=== PATIENT | male | born 1995 | race Caucasian/White ===

== ENCOUNTER 2025-03-05 08:26 | Outpatient (AMB) | payer OTHER, SELFPAY ==
--- NOTE | 2025-03-05 08:28 | MHC.PC.OV ---
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 Note: patient here for new patient Regional Recruiter Required: No Allergies No Known Allergies Allergy (Verified 03/05/25 08:54) Medication List - Last Reconciled 03/05/25 by Orlando Rosas CNP No Known Home Meds Tobacco use date assessed: 03/05/25 Dental Screening Dental Screen Date: 03/05/25 Did you have a dental visit in the last 12 months?: No Did you have a dental problem in the last 6 months where you did not have access to dental care?: No Was dental information given to patient?: Yes HPI HPI Comments History of Present Illness Details 29-year-old male presents to [facility] care. He is not on prescription medications. 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 Does not vape. Does not drink alcohol. Denies recreational drug use - Generally makes healthy dietary choices, however, he eats fast food twice weekly. Exercises routinely. Generally sleep well Health maintenance - Last eye exam was [address] Villafana [place]. Referred to ophthalmology for routine eye exam - Last dental visit was 2-3 years ago; encouraged to schedule an appointment with his dentist for routine dental care - Last Tdap was in 2023. Record not currently available - Has not been vaccinated for the flu this season; declines vaccination - He has never had a colonoscopy. May start colonoscopy early, 40 years old or sooner with symptoms or concerns [facility] Medical History (Updated 03/05/25 @ 09:14 by Orlando Rosas CNP) Depression Anxiety Wrist sprain Ankle sprain Family History (Updated 03/05/25 @ 08:48 by Viji Montoya MA) Mother Asthma High blood pressure High cholesterol Thyroid disorder Father High blood pressure Skin cancer Maternal Grandmother High blood pressure High cholesterol Cardiovascular disease Sister High blood pressure Paternal Grandfather Colon cancer Social History (Updated 03/05/25 @ 08:37 by Viji Montoya MA) Housing: Apartment Patient Tobacco Use Status: Never used Tobacco e-Cigarette/Vaping Use: Never Used Second Hand Smoke Exposure: No service: No Current occupational status: employed 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 1. Little interest or pleasure in doing things: not at all 2. Feeling down, depressed, or hopeless: not at all 3. Trouble falling or staying asleep, or sleeping too much: not at all 4. Feeling tired or having little energy: not at all 5. Poor appetite or overeating: not at all 6. Feeling bad about yourself - or that you are a failure or have let yourself or your family down: not at all 7. Trouble concentrating on things, such as reading the newspaper or watching television: not at all 8. Moving or speaking so slowly that other people could have noticed. Or the opposite - being so fidgety or restless that you have been moving around a lot more than usual: not at all 9. Thoughts that you would be better off or of hurting yourself in some way: not at all Total score: 0 Depression Screening Interpretation: Negative Depression Screening Done: Yes 06618 - PHQ-9 Billing: Yes Source: Developed by Drs. William Horn, Norma Felix, Austin Rivera and colleagues, with an educational wendy from [employer]. Thrive Questionnaire Date Thrive assessed: 03/05/25 I am a: Patient What is your living situation today?: I have a steady place to live Within the past 12 months, did the food you bought not last and you didn't have the money to get more?: Never true Within the past 12 months, did you worry whether your food would run out before you got money to buy more?: Never true Do you have trouble paying for medicines?: No Do you have trouble getting transportation to medical appointments?: No Do you have trouble paying your heating and electricity bill?: No Do you have trouble taking care of your child, family member or friend?: No Do you have trouble with day-to-day activities such as bathing, preparing meals, shopping, managing finances, etc.?: No Are you currently unemployed and looking for a job?: No Are you interested in more education?: No Please select the resources that you would like help with: None Currently or been in a relationship where the following occur: No concerns reported THRIVE Score: 0 AUDIT C Alcohol Use Questionnaire (AUDIT-C) 1. How often do you have a drink containing alcohol?: Never 3. How often do you have six or more drinks on one occasion?: Never Total Score: 0 Score Reviewed/Action Taken: Yes JAZMYN-7 AMB Questionnaire JAZMYN-7 Date JAZMYN - 7 assessed: 03/05/25 Feeling nervous, anxious, or on edge: 0 = Not at all Not being able to stop or control worryin = Not at all Worrying too much about different things: 0 = Not at all Trouble relaxin = Not at all Being so restless that it is hard to sit still: 0 = Not at all Becoming easily annoyed or irritable: 0 = Not at all Feeling afraid as if something awful might happen: 0 = Not at all Total JAZMYN-7 score (0-4 normal; 5-9 mild; 10-14 moderate; 15-21 severe): 0 Source: Developed by Drs. William Horn, Norma Felix, Austin Rivera and colleagues, with an educational wendy from [employer]. JAZMYN-7 Assessment Billing JAZMYN-7 Assessment Tool: JAZMYN-7 Assessment 03079 Review of Systems Const Details: Denies chills, Denies fatigue, Denies fever(s), Denies headache(s) and Denies weakness HEENT Denies change in vision, Denies dizziness, Denies headache(s), Denies hearing loss, Denies nasal congestion, Denies sinus pain, Denies sinus pressure and Denies sore throat Card Denies chest pain, Denies lightheadedness, Denies dyspnea and Denies other (palpitations) Resp Denies cough, Denies dyspnea and Denies wheezing GI Denies abdominal pain, Denies melena, Denies hematochezia, Denies change in bowel habits, Denies dyspepsia and Denies nausea Denies hematuria and Denies dysuria Musc Denies abnormal gait, Denies myalgias, Denies arthralgias, Denies numbness and Denies tingling Skin/Breast Denies rash, Denies unusual bruising and Denies wounds Neuro Denies abnormal gait, Denies dizziness, Denies headache(s), Denies memory loss, Denies numbness, Denies Sensory deficit (Neuro), Denies tingling and Denies weakness Psych Denies anxiety, Denies depression and Denies memory loss Endo Denies cold intolerance, Denies fatigue, Denies heat intolerance, Denies polydipsia and Denies polyuria Kumar/Lymph Denies easy bleeding and Denies easy bruising Aller/Immun Denies wheezing Physical exam (Primary Care) Vital Signs: Last Vital Signs Temp 97.8 F 03/05/25 08:38 Pulse 78 03/05/25 08:38 Resp 16 03/05/25 08:38 BP 126/60 03/05/25 08:38 Pulse Ox 98 03/05/25 08:38 Oxygen Delivery Method Room Air 03/05/25 08:38 BMI result Body Mass Index 25.8 Tobacco/Smoking Status: Tobacco use Status Tobacco use date assessed 03/05/25 03/05/25 08:37 Patient Tobacco Use Status Never used Tobacco 03/05/25 08:37 e-Cigarette/Vaping Use Never Used 03/05/25 08:37 PHQ-9: PHQ-9 Score PHQ-9: Total score 0 03/05/25 08:58 Depression Screening Interpretation: Negative Thrive Assessment: Date of Thrive Assessment Date Thrive assessed 03/05/25 03/05/25 08:33 Currently or been in a relationship where the following occur: No concerns reported Const Other: General: no acute distress, well developed, alert and awake Nutritional Appearance: well nourished Orientation/consciousness: patient oriented x3 HENMT Head: Yes normocephalic and Yes atraumatic Ears: hearing grossly normal bilaterally and TM's normal bilaterally General nose exam: Normal external nose present and Normal nares present Mouth: Normal oral and palatal mucosa present and moist mucous membranes Teeth and gingiva: dentition normal Throat: Yes oropharynx normal Eyes Pupils: Equal, round and reactive pupils present and Pupil accommodation reflex normal EOM: EOMs intact bilaterally Neck Neck: Yes normal visual inspection, Yes no lymphadenopathy and Yes trachea midline Thyroid: Thyroid normal Carotids: no bruits Lymphatic: no lymphadenopathy noted Chest Chest palpation & inspection: normal inspection of the chest Resp Effort & Inspection: normal respiratory effort Auscultation: clear to auscultation bilaterally Cardio Rate: regular rate Rhythm: regular rhythm Heart sounds: S1 normal heart sound present, S2 normal heart sound present, no gallops, no murmurs and no rubs Bruits: no abdominal aortic bruits and no carotid bruits GI Palpation (GI): No Abdominal aortic bruit present, Soft to palpation, nontender, No hepatosplenomegaly present and No Rebound tenderness present Auscultation: normal bowel sounds General: Yes no CVA tenderness Back/Spine/Pelvis Back: no CVA tenderness Cervical Spine: cervical ROM normal and No Cervical spine tenderness Thoracic/Lumbar Spine: thoraco-lumbar ROM normal, No pain with thoraco-lumbar ROM, No thoracic spinal tenderness and No lumbar spinal tenderness Skin General: warm and dry. Normal skin color. Normal skin turgor Lesions: no lesions Rashes: no rashes Trauma: no lacerations or abrasions Wounds: no wounds Nails: normal Neuro General: patient oriented x3, gait normal and CN's II-XI intact bilaterally Cranial nerves: Yes Equal, round and reactive pupils present Cognition (Neuro): normal cognition Gait exam (Neuro): Normal gait present Motor exam (neuro): 5/5 motor strength present throughout Sensory Exam: No Sensory deficit (Neuro) Deep tendon reflexes (DTR's): Right patellar reflex intensity grade: 2+ and Left patellar reflex intensity grade: 2+ Extrem General: Yes normal to inspection, No edema and No calf tenderness Psych Appearance: grossly normal Affect: normal affect Attitude: cooperative Thought process: Normal thought process present Coding Level of Care Code New Pt New Pt Prev Care 18-39yr([id number] Patient Type New Diagnoses Normal physical examination, routine Z00.00 Eye exam, routine Z01.00 Laboratory tests ordered as part of a complete physical exam (CPE) Z00.00 Additional Codes JAZMYN-7 Assessment Billing - JAZMYN-7 Assessment Tool: JAZMYN-7 Assessment 38994 ([id number]) PHQ-9 - 57244 - PHQ-9 Billing: Yes ([id number]) Assessment & Plan Assessment & Plan (1) Normal physical examination, routine: Code(s): Z00.00 - Encounter for general adult medical examination without abnormal findings Category: Medical Plan: No significant functional limitation noted. Healthy diet and routine exercise encouraged. Perform blood work and follow-up for telehealth visit for labs review in 2-4 months. Return sooner with symptoms or concerns. Verbalized understanding and agreed with the treatment plan. (2) Eye exam, routine: Code(s): Z01.00 - Encounter for examination of eyes and vision without abnormal findings Category: Medical Plan: Last eye exam was [address] Villafana, [place]. Referred to ophthalmology for routine eye exam. (3) Laboratory tests ordered as part of a complete physical exam (CPE): Code(s): Z00.00 - Encounter for general adult medical examination without abnormal findings Category: Medical Plan: Fasting labs ordered as part of a complete physical exam. Advised to fast for at least 10 hours before getting labs drawn. May drink water Verbalized understanding and agreed with treatment plan. Orders: Orders Comprehensive [place]. Panel Fast Today Z00.00 - Encounter for general adult medical examination without abnormal findings Lipid Panel Today Z00.00 - Encounter for general adult medical examination without abnormal findings TSH reflex Free T4 Today Z00.00 - Encounter for general adult medical examination without abnormal findings UA CC w/rflx Micro + Cult Today Z00.00 - Encounter for general adult medical examination without abnormal findings Complete Blood Count Auto Diff Today Z00.00 - Encounter for general adult medical examination without abnormal findings Microalbumin, Random (w Creat) Today Z00.00 - Encounter for general adult medical examination without abnormal findings Vitamin D 25-OH Total Today Z00.00 - Encounter for general adult medical examination without abnormal findings Referrals Ophthalmology Referral Z01.00 - Encounter for examination of eyes and vision without abnormal findings
[2025-03-05 08:38] VITALS: BP 126/60; PULSE 78; RESP 16; TEMP 36.6; O2SAT 98; BMI 25.8
== END 2025-03-05 09:14 | disposition home or self-care (01) ==
LOC: HO.HMCFM 08:27
PROVIDERS: PCP Nurse Practitioner Family; Visit Provider Nurse Practitioner Family
DX: Z00.00 Encounter for general adult medical examination without abnormal findings (principal); Z01.00 Encounter for examination of eyes and vision without abnormal findings

== ENCOUNTER → 2025-03-05 08:26 | Outpatient (BNVA) | payer OTHER, SELFPAY | PROVIDERS: PCP Nurse Practitioner Family; Visit Provider Nurse Practitioner Family | DX: Z00.00 Encounter for general adult medical examination without abnormal findings (principal) | CPT/HCPCS: 96127 ==

== ENCOUNTER 2025-03-05 09:24 | Outpatient (REF) | payer OTHER, SELFPAY ==
[2025-03-05 11:28] LABS: Appearance Urine Clear; Glucose Urine UA Negative (Negative); PH 6.5 (5.0-9.0); Specific Gravity - Urine 1.020 (1.005-1.025)
[2025-03-05 11:33] LABS: MANUAL DIFF FLAG NO
[2025-03-05 11:45] LABS: Hematocrit 44.2 % (42.0-52.0); Hemoglobin 15.1 g/dl (14.0-18.0); Imm Gran Abs Auto 0.02 X10*3/uL (0.00-0.03); Imm Gran Pct Auto 0.3 % (0.0-0.4); Lymphocytes Absolute Auto 2.0 X10*3/uL (1.2-4.9); Mean Corpuscular HGB Conc 34.2 g/dl (31.0-36.0); Mean Corpuscular Hemoglobin 30.1 pg (27.0-33.0); Mean Corpuscular Volume 88.2 fL (80.0-98.0); NRBC Abs Auto 0.000 X10*3/uL (0.0-0.012); NRBC Pct Auto 0.0 /100WBC (0.0-0.2); Platelet Count 290 X10*3/uL (160-400); Red Blood Count 5.01 X10*6/uL (4.60-5.80); White Blood Count 6.1 X10*3/uL (4.8-10.8)
[2025-03-05 12:07] LABS: Microalbum/Creatinine Ratio Ur 21.1 ug/mg cr (<30)
[2025-03-05 12:15] LABS: Alanine Aminotransferase 39 U/L (0-40); Albumin Level 4.8 g/dL (3.5-5.0); Alkaline Phosphatase 88 U/L (39-117); Anion Gap 10 (12-20); Aspartate Amino Transferase 29 U/L (5-37); Blood Urea Nitrogen 11 mg/dL (9-16); Calcium 9.6 mg/dL (8.4-10.2); Carbon Dioxide 29 mmol/L (22-29); Chloride 105 mmol/L (96-108); Cholesterol 241 mg/dL (<200); Estimated Glomerular Filt Rate > 60; HDL Cholesterol 44 mg/dL (>40); Potassium 3.8 mmol/L (3.3-5.1); Sodium 140 mmol/L (135-145); Total Protein 7.3 g/dL (6.5-8.0); Triglycerides 147 mg/dL (<150)
== END 2025-03-05 09:25 | disposition home or self-care (01) ==
LOC: HO.WFDLDS 09:24
PROVIDERS: Visit Provider Nurse Practitioner Family
DX: Z00.00 Encounter for general adult medical examination without abnormal findings (principal)
CPT/HCPCS: 36415; 80053; 80061; 81003; 82043; 82306; 82570; 84443; 85025

== ENCOUNTER 2025-03-15 12:24 | Outpatient (AMB) | payer OTHER, SELFPAY ==
--- NOTE | 2025-03-15 12:20 | A.OFFPC_ITS ---
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 He offers no complaints and denies acute symptoms at this time. [facility] Medical History (Updated 03/15/25 @ 12:40 by Orlando Rosas CNP) Depression Anxiety Wrist sprain Ankle sprain Family History (Updated 03/05/25 @ 08:48 by Viji Montoya MA) Mother Asthma High blood pressure High cholesterol Thyroid disorder Father High blood pressure Skin cancer Maternal Grandmother High blood pressure High cholesterol Cardiovascular disease Sister High blood pressure Paternal Grandfather Colon cancer Social History (Updated 03/05/25 @ 08:37 by Viji Montoya MA) Housing: Apartment Patient Tobacco Use Status: Never used Tobacco e-Cigarette/Vaping Use: Never Used Second Hand Smoke Exposure: No service: No Current occupational status: employed 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 Current occupational exposures/hazards: No Cognitive needs: No Hearing needs: No Vision needs: Yes Questionnaire Thrive Questionnaire Date Thrive assessed: 02/26/25 I am a: Patient What is your living situation today?: I have a steady place to live Within the past 12 months, did the food you bought not last and you didn't have the money to get more?: Never true Within the past 12 months, did you worry whether your food would run out before you got money to buy more?: Never true Do you have trouble paying for medicines?: No Do you have trouble getting transportation to medical appointments?: No Do you have trouble paying your heating and electricity bill?: No Do you have trouble taking care of your child, family member or friend?: No Do you have trouble with day-to-day activities such as bathing, preparing meals, shopping, managing finances, etc.?: No Are you currently unemployed and looking for a job?: No Are you interested in more education?: No Please select the resources that you would like help with: None Currently or been in a relationship where the following occur: No concerns reported THRIVE Score: 0 JAZMYN-7 AMB Questionnaire JAZMYN-7 Date JAZMYN - 7 assessed: 03/05/25 Source: Developed by Drs. William Horn, Norma Felix, Austin Rivera and colleagues, with an educational wendy from [employer]. Review of Systems Const Details: Denies chills, Denies fatigue, Denies fever(s), Denies headache(s) and Denies weakness Cardiac Denies chest pain, Denies claudication, Denies leg edema, Denies lightheadedness, Denies palpitations, Denies dyspnea, Denies dyspnea on exertion, Denies orthopnea and Denies other (Loss of consciousness) Resp Denies cough, Denies excessive phlegm production, Denies dyspnea, Denies dyspnea on exertion, Denies snoring and Denies wheezing Physical exam (Primary Care) Tobacco/Smoking Status: Tobacco use Status Tobacco use date assessed 03/15/25 03/15/25 12:23 Patient Tobacco Use Status Never used Tobacco 03/15/25 12:23 e-Cigarette/Vaping Use Never Used 03/15/25 12:23 Thrive Assessment: Date of Thrive Assessment Date Thrive assessed 02/26/25 03/15/25 12:23 Currently or been in a relationship where the following occur: No concerns reported Const Other: Patient is alert and oriented x 3 Telehealth Telehealth Telehealth Platform: Telephone Location of provider rendering services: practice address Location of patient: address on file Patient Identification confirmed using: Name, : Yes Telehealth method: voice only Patient verbally consented to treatment: Yes Patient verbally consented to billing insurance company: Yes Patient informed of any privacy concerns related to visit: Yes Coding Level of Care Code Tele Est Pt Level 3 (96285) Diagnoses Hypercholesterolemia E78.00 Time Spent (min) 15 Assessment & Plan Assessment & Plan (1) Hypercholesterolemia: Code(s): E78.00 - Pure hypercholesterolemia, unspecified Category: Medical Plan: Recent total cholesterol and LDL levels are elevated, 241 and 168 respectively. Triglycerides and LDL levels are normal. He has maternal and paternal family history of hyperlipidemia. Advised to limit foods high in saturated fat and avoid foods high in trans fat. Routine exercise encouraged. Fast for 10-12 hours, may drink water, perform lipid panel blood work 2-3 days before next visit. Follow-up for telehealth visit for labs review in 2 months. Return sooner with symptoms or concerns. Verbalized understanding and agreed with the plan. Orders: Orders Lipid Panel 2 Months E78.00 - Pure hypercholesterolemia, unspecified
== END 2025-03-15 12:48 | disposition home or self-care (01) ==
LOC: HO.HMCFM 12:24
PROVIDERS: PCP Nurse Practitioner Family; Visit Provider Nurse Practitioner Family
DX: E78.00 Pure hypercholesterolemia, unspecified (principal)

== ENCOUNTER 2025-04-09 08:06 | Outpatient (REF) | payer OTHER, SELFPAY ==
[2025-04-09 11:39] LABS: Cholesterol 194 mg/dL (<200); HDL Cholesterol 35 mg/dL (>40); Triglycerides 89 mg/dL (<150)
== END 2025-04-09 08:07 | disposition home or self-care (01) ==
LOC: HO.WFDLDS 08:06
PROVIDERS: Visit Provider Nurse Practitioner Family
DX: E78.00 Pure hypercholesterolemia, unspecified (principal)
CPT/HCPCS: 36415; 80061

== ENCOUNTER 2025-05-10 08:37 | Outpatient (REF) | payer OTHER, SELFPAY ==
[2025-05-10 11:56] LABS: Cholesterol 194 mg/dL (<200); HDL Cholesterol 38 mg/dL (>40); Triglycerides 68 mg/dL (<150)
== END 2025-05-10 08:38 | disposition home or self-care (01) ==
LOC: HO.WFDLDS 08:37
PROVIDERS: Visit Provider Nurse Practitioner Family
DX: E78.00 Pure hypercholesterolemia, unspecified (principal)
CPT/HCPCS: 36415; 80061

== ENCOUNTER 2025-05-17 15:01 | Outpatient (AMB) | payer OTHER, SELFPAY ==
--- NOTE | 2025-05-17 14:52 | MHC.PC.OV ---
Intake Visit Reasons: 2 months f/u hypercholesterolemia Intake Note: patient here for Telehealth follow up on hyperchesterolemia Apparel Manager Required: No Allergies No Known Allergies Allergy (Verified 05/17/25 15:00) Tobacco use date assessed: 05/17/25 Dental Screening Dental Screen Date: 05/17/25 Did you have a dental visit in the last 12 months?: No Did you have a dental problem in the last 6 months where you did not have access to dental care?: No Was dental information given to patient?: Patient has dentist HPI HPI Comments History of Present Illness Details 29-year-old male presents for a telehealth visit for hypercholesterolemia. He admits to making healthy lifestyle changes. He requests referral to belt brander/dietitian because he is a picky eater and and needs help with dietary choices. He was supposed to performed lipid panel blood work 2 months after his last visit. However, he inadvertently had the blood work done a month earlier and repeat as planned. No acute symptoms. [facility] Medical History (Updated 03/15/25 @ 12:40 by Orlando Rosas CNP) Depression Anxiety Wrist sprain Ankle sprain Family History (Updated 03/05/25 @ 08:48 by Viji Montoya MA) Mother Asthma High blood pressure High cholesterol Thyroid disorder Father High blood pressure Skin cancer Maternal Grandmother High blood pressure High cholesterol Cardiovascular disease Sister High blood pressure Paternal Grandfather Colon cancer Social History (Updated 03/05/25 @ 08:37 by Viji Montoya MA) Housing: Apartment Patient Tobacco Use Status: Never used Tobacco e-Cigarette/Vaping Use: Never Used Second Hand Smoke Exposure: No service: No Current occupational status: employed 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 William Horn, Norma Felix, Austin Rivera and colleagues, with an educational wendy from [employer]. Review of Systems Const Details: Denies chills, Denies fatigue, Denies fever(s), Denies headache(s) and Denies weakness Cardiac Denies chest pain, Denies claudication, Denies leg edema, Denies lightheadedness, Denies palpitations, Denies dyspnea, Denies dyspnea on exertion, Denies orthopnea and Denies other (Loss of consciousness) Resp Denies cough, Denies excessive phlegm production, Denies dyspnea, Denies dyspnea on exertion, Denies snoring and Denies wheezing Physical exam (Primary Care) Tobacco/Smoking Status: Tobacco use Status Tobacco use date assessed 03/15/25 05/17/25 14:55 Patient Tobacco Use Status Never used Tobacco 05/17/25 14:55 e-Cigarette/Vaping Use Never Used 05/17/25 14:55 Thrive Assessment: Date of Thrive Assessment Date Thrive assessed 02/26/25 05/17/25 14:55 Const Other: Patient is alert oriented x3 Telehealth Telehealth Telehealth Platform: Telephone Location of provider rendering services: practice address Location of patient: address on file Patient Identification confirmed using: Name, : Yes Telehealth method: voice only Patient verbally consented to treatment: Yes Patient verbally consented to billing insurance company: Yes Patient informed of any privacy concerns related to visit: Yes Coding Level of Care Code Tele Est Pt Level 3 (95503) Diagnoses Hypercholesterolemia E78.00 Time Spent (min) 15 Assessment & Plan Assessment & Plan (1) Hypercholesterolemia: Code(s): E78.00 - Pure hypercholesterolemia, unspecified Category: Medical Plan: Recent LDL level is elevated, 143, initial level was 168. HDL level is slightly low but improving, 38, initial level was 44. Triglycerides and total cholesterol levels are normal. Advised to limit foods high in saturated fat and avoid foods high in trans fat. Routine exercise encouraged. Referred to [facility] belt brander/dietitian. Fast for 10-12 hours, may drink water, and perform lipid panel blood work a few days before next visit. Follow-up for telehealth visit in 2 months. Return sooner with symptoms or concerns. Verbalized understanding and agreed with the plan. Orders: Orders Lipid Panel 2 Months E78.00 - Pure hypercholesterolemia, unspecified Referrals Nutrition/Dietitian Referral E78.00 - Pure hypercholesterolemia, unspecified
== END 2025-05-17 15:10 | disposition home or self-care (01) ==
LOC: HO.HMCFM 15:01
PROVIDERS: PCP Nurse Practitioner Family; Visit Provider Nurse Practitioner Family
DX: E78.00 Pure hypercholesterolemia, unspecified (principal)

== ENCOUNTER 2025-07-27 08:59 | Outpatient (AMB) | payer OTHER, SELFPAY ==
[2025-07-27 09:12] VITALS: BMI 25.2
--- NOTE | 2025-07-27 09:12 | A.OFFVIS_ITS ---
VS Expanded 07/27/25 09:12 Height 5 ft 6 in Weight 156 lb BMI 25.2 Intake Visit Reasons: Pure hypercholesterolemia, unspecified Allergies No Known Allergies Allergy (Verified 05/17/25 15:00) Nutrition Presentation Details: Pt presents for MNT for hypercholesterolemia Pt reports working on reducing intake of high fat foods. Admits to consuming foods higher in fat from fast food meals Currently meal pattern is 8-10 am granola bar or figbar or protein waffles and yogurt , water 12 : chicken strips or sand with peanut butter jelly on whole wheat fiber or chicken sand with cheese dinner potato fries or rice spices soy sauce with sausage or pasta with david or marinara sauce (stop at fast food chicken burger/chalupa Food frequency Fish: Does not like not therefore not including Fruits 0-1 a day, trying to incorporating smoothies Vegetables 1-2 a in a week, reports trying to incorporate Dairy, 2-3 a day Beverages, choosing water, diet sodas, juices Physical activity: Daily life activities Alcohol/smoking- BS Monitoring Most Recent Diabetes Results: Microalb/Creat Ratio, (<30) 21.1 ug/mg cr 03/05/25 Cholesterol, (<200) 194 mg/dL 05/10/25 HDL Cholesterol, (>40) 38 mg/dL L 05/10/25 Triglycerides, (<150) 68 mg/dL 05/10/25 Creatinine, (0.5-1.4) 0.96 mg/dL 03/05/25 BUN, (9-16) 11 mg/dL 03/05/25 Sodium, (135-145) 140 mmol/L 03/05/25 Potassium, (3.3-5.1) 3.8 mmol/L 03/05/25 Chloride, (96-108) 105 mmol/L 03/05/25 Carbon Dioxide, (22-29) 29 mmol/L 03/05/25 Calcium, (8.4-10.2) 9.6 mg/dL 03/05/25 AST, (5-37) 29 U/L 03/05/25 ALT, (0-40) 39 U/L 03/05/25 Total Protein, (6.5-8.0) 7.3 g/dL 03/05/25 Albumin, (3.5-5.0) 4.8 g/dL 03/05/25 RMZ-Rhrcthm-Oa.Jeor Equation Height: 5 ft 6 in Weight: 156 lb Resting Metabolic Rate: 1607.13 Calculated Activity Level: Sedentary Calories Needed to Maintain Weight: 1928.56 Diagnosis Nutrition problem #1: altered nutrition labs As related to (etiology) #1: lack of nutrit education As evidenced by (sign/symptom) #1: abnormal serum lipids [facility] Medical History (Updated 03/15/25 @ 12:40 by Orlando Rosas CNP) Depression Anxiety Wrist sprain Ankle sprain Family History (Updated 03/05/25 @ 08:48 by HIEN Westfall) Mother Asthma High blood pressure High cholesterol Thyroid disorder Father High blood pressure Skin cancer Maternal Grandmother High blood pressure High cholesterol Cardiovascular disease Sister High blood pressure Paternal Grandfather Colon cancer Social History (Updated 03/05/25 @ 08:37 by HIEN Westfall) Housing: Apartment Patient Tobacco Use Status: Never used Tobacco e-Cigarette/Vaping Use: Never Used Second Hand Smoke Exposure: No service: No Current occupational status: employed 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 Current occupational exposures/hazards: No Cognitive needs: No Hearing needs: No Vision needs: Yes Assessment & Plan Assessment & Plan (1) Hypercholesterolemia: Code(s): E78.00 - Pure hypercholesterolemia, unspecified Category: Medical Plan: current wt: 71 kg (08/19 ) est kcal needs as per MSJ: 2000 est protein needs as per 1 g/kg BW: 70 est fluid needs as per 30 ml/kg BW: 2100 Recommended fiber > 12 g /day and gradually increase up to 25-28 g /day or as tolerated Nutrition topics discussed : Reviewed (R), Pt verbalized understanding (V) , not applicable (N/A) R, : Healthy Plate Method Concept: R, : Carbohydrates: food sources of carbohydrates, relationship of carbohydrates to blood glucose, fatty liver GI health. Recommended total amount of carbohydrates per meals and snack. Differences between simple carbohydrates and complex carbohydrates R, : Lean protein foods including vegan , vegetarian sources of protein. Benefits of protein (including but not limited to healing, nutritional value , benefits in weight loss, glucose control R, : Fats : Source of fats, benefits of fats. Difference between saturated and unsaturated fats. Saturated fats and its contribution to inflammation R, : Fiber: food sources and role of fiber in the diet (including but not limited to its role as a prebiotic, benefits in constipation, role in IBS , role in glucose control and cholesterol level) R, : Hydration: role of hydration and prevention of dehydration or over hydration. Foods and water content. R, V, N/A: Vitamins and Minerals in foods and supplements R, V, N/A: Interpreting food labels, including serving size, macronutrients, vitamins, minerals, allergens, ingredient list , % daily value Patient Instructions: Include omega-3 fatty acids in your diet (choose nuts, seeds, have these as a snack replacing empty calorie snacks Incorporate lean protein foods and choose high-fiber foods, see meal ideas consisting of low-fat food options and fiber rich foods Keep hydrated to prevent constipation as you increase on fiber intake Coding Level of Care Code Nutr Indiv Intake (06109) Diagnoses Hypercholesterolemia E78.00 Time Spent (min) 30
[2025-07-27 13:51] VITALS: BMI 25.2
== END 2025-07-27 09:58 | disposition home or self-care (01) ==
LOC: HO.ENCR 09:00
PROVIDERS: PCP Nurse Practitioner Family; Visit Provider Dietitian, Registered
DX: E78.00 Pure hypercholesterolemia, unspecified (principal)

== ENCOUNTER → 2025-07-27 08:59 | Outpatient (BNVA) | payer OTHER, SELFPAY | PROVIDERS: PCP Nurse Practitioner Family; Visit Provider Dietitian, Registered | DX: E78.00 Pure hypercholesterolemia, unspecified (principal); Z71.3 Dietary counseling and surveillance | CPT/HCPCS: 97802 ==